=== PATIENT | female | born 1965 | race Caucasian/White ===

== ENCOUNTER 2018-01-15 12:34 | Outpatient (CLI) | payer BC | END 2018-01-15 12:35 | disposition home or self-care (01) | LOC: BICMAMMO 12:34 | PROVIDERS: ATTEND Family Medicine | DX: Z12.31 Encounter for screening mammogram for malignant neoplasm of breast (principal); R92.1 Mammographic calcification found on diagnostic imaging of breast | CPT/HCPCS: 77063; 77067 ==

== ENCOUNTER 2019-03-03 10:20 | Outpatient (CLI) | payer BC ==
--- NOTE | 2019-03-03 12:01 | RAD ---
PA AND LATERAL VIEWS OF THE CHEST: HISTORY: Asthma. Chest congestion. FINDINGS: The heart size is normal. The lungs are expanded without focal areas of consolidation, pneumothorace s, or pleural effusions. There are mild degenerative changes in the spine. There are postop changes of right rotator cuff repair. IMPRESSION: No radiographic evidence of acute cardiopulmonary process. POS: [facility]
== END 2019-03-03 10:21 | disposition home or self-care (01) ==
LOC: BICRAD 10:20
PROVIDERS: ATTEND Obstetrics & Gynecology
DX: J45.909 Unspecified asthma, uncomplicated (principal)
CPT/HCPCS: 71046

== ENCOUNTER 2020-06-11 16:21 | Emergency (ER) | payer BC | END 2020-06-11 17:30 | disposition home or self-care (01) | LOC: ERS 16:21 | DX: U07.1 COVID-19 (principal); J45.909 Unspecified asthma, uncomplicated; F90.9 Attention-deficit hyperactivity disorder, unspecified type; Z79.899 Other long term (current) drug therapy; Z79.51 Long term (current) use of inhaled steroids | CPT/HCPCS: 71045; 71275; 80053; 83605; 83880; 84484; 85025; 93005; 99283; Q9967 ==

== ENCOUNTER 2020-07-02 11:24 | Outpatient (CLI) | payer BC ==
--- NOTE | 2020-07-02 11:40 | RAD ---
XR Chest Pa Lat STANDARD History: Pneumonia. Asthma Comparison: Radiograph June 11, 2020 Findings: Improved left lung aeration. No confluent airspace consolidation, pneumothorax or effusion. No acute osseous abnormality. Impression: Improved lung aeration. No evidence for residual pneumonia.
== END 2020-07-02 11:25 | disposition home or self-care (01) ==
LOC: BICRAD 11:24
DX: U07.1 COVID-19 (principal); J18.8 Other pneumonia, unspecified organism; J45.909 Unspecified asthma, uncomplicated; J98.4 Other disorders of lung
CPT/HCPCS: 36415; 71046; 80053; 85025

== ENCOUNTER 2020-09-02 04:06 | Observation (INO) | payer BC ==
[2020-09-02] MEDS ORDERED: Ondansetron PF 4 MG/2 ML Vial ONE ×2 (04:22→13:33)
[2020-09-02] MEDS ORDERED: Morphine 4 MG/ML VIAL ONE (04:22)
[2020-09-02] MEDS ORDERED: Morphine 4 MG/ML VIAL SLOW IVP PRN ×2 (05:36→12:38)
[2020-09-02 05:41] VITALS: BMI 23.1
[2020-09-02] MEDS ORDERED: Ondansetron PF 4 MG/2 ML Vial IVP PRN ×2 (05:45→12:38)
[2020-09-02] MEDS ORDERED: Acetaminophen 325 MG TAB PO PRN (05:45)
[2020-09-02] MEDS ORDERED: Sodium Chloride 0.9% 1,000 ML IV SCH ×2 (05:45→12:38)
[2020-09-02] MEDS ORDERED: Ondansetron ODT 4 MG TAB SL PRN (05:45)
--- NOTE | 2020-09-02 09:10 | PDOC.BPN ---
- Brief Progress Note Encounter Date: 09/02/20 Encounter Time: 08:55 Ms. Maza is a 54 yo female with a PMH of recurrent colitis and proctitis followed with GI who is currently in room 3329 pre appendectomy for appendicitis. She states that on Sunday morning, she felt pain in the RLQ which had gradually gotten worse. The pain is dull and achy in nature and localized in the RLQ. Movement worsens the pain, while rest and pain meds alleviates it. Pt endorses nausea, but denies fever, chills, and chest pain, changes in urination or defecation. Pt is currently feeling ok, with minimal pain. Past surgical hx: cholecystectomy, left shoulder rotator cuff repair, Right knee surgery Physical Exam: Selected Entries 09/02/20 07:48 Temperature 98.2 F Pulse Rate 63 Blood Pressure 93/58 L [Semi-Fowlers] Respiratory 16 Rate O2 Sat by Pulse 96 Oximetry Oxygen Delivery Room Air Method General: In no acute distress Abdomen: soft, slight tenderness in RLQ abdomen upon palpation Heart: S1 S2 heard, normal Lungs: Bilateral breath sounds heard upon auscultation CT scan demonstrated acute uncomplicated appendicitis Plan: Appendectomy scheduled.
[2020-09-02] MEDS ORDERED: Fentanyl 100 MCG/2 ML VIAL ONE (09:14)
[2020-09-02] MEDS ORDERED: cefOXitin Sodium/Dextrose 2 GM/50 ML BAG ONE (10:29)
[2020-09-02] MEDS ORDERED: EPINEPHrine 1 MG/ML AMP ONE (10:38)
[2020-09-02] MEDS ORDERED: Bupivacaine 0.25% HCL 30 ML VIAL ONE (10:38)
[2020-09-02] MEDS ORDERED: Ondansetron HCl/PF 4 MG/2 ML Vial IVP PRN (12:20)
[2020-09-02] MEDS ORDERED: Promethazine HCl 25 MG/ML VIAL IM PRN ×2 (12:20→12:38)
[2020-09-02] MEDS ORDERED: Promethazine HCl 25 MG/ML VIAL SLOW IVP PRN (12:20)
[2020-09-02] MEDS ORDERED: PACU-Morphine 4MG/ML VIAL SLOW IVP PRN (12:20)
--- NOTE | 2020-09-02 12:25 | OP ---
DATE OF PROCEDURE: 09/02/2020 PREOPERATIVE DIAGNOSIS: Acute appendicitis. POSTOPERATIVE DIAGNOSIS: Acute appendicitis. PROCEDURE PERFORMED: Laparoscopic appendectomy. ANESTHESIA: General. ESTIMATED BLOOD LOSS: Minimal. COMPLICATIONS: None. SPECIMEN: Appendix. FINDINGS: Appendicitis. DESCRIPTION OF PROCEDURE: The patient was taken to the operating room and laid supine on the operating table. After general anesthetic was obtained, a Coker catheter was placed. The abdomen was prepped and draped in a sterile fashion. A curved incision was made below the umbilicus. Cautery was used to dissect down to and incise the intra-abdominal fascia. The abdominal cavity was entered bluntly using a Rosa clamp. A holding stitch of Vicryl was placed on each side of the fascia. A Parvez trocar was placed. High-flow peritoneum was obtained. A suprapubic 5-mm port and a left lower quadrant 5-mm port were placed under direct camera visualization. The cecum was rolled over to reveal acute appendicitis. A small window was made at the base of the appendix at the mesoappendix. A laparoscopic stapler was fired across the base of the appendix. A reload was fired across the mesoappendix. There was no bleeding on the staple lines. The appendix was placed in the EndoCatch bag and brought out through the Parvez. The right lower quadrant and pelvis were irrigated using sterile solution. There was no evidence of perforation, no pus. All port sites were infiltrated using local anesthesia. All ports were removed under camera visualization. Pneumoperitoneum was let down. Vicryl suture was used to close the fascial defect below the umbilicus; #4-0 Monocryl and Dermabond were used to close the skin incision. The patient was en route to recovery in stable condition. All instrument counts, needle counts, and lap counts were correct. Job ID: [id number]
[2020-09-02] MEDS ORDERED: Dextrose 5% in Water 1,000 ML IV PRN (12:38)
[2020-09-02] MEDS ORDERED: HYDROcodone/Acetaminophen 7.5/325 mg Tablet PO PRN ×2 (12:38)
[2020-09-02] MEDS ORDERED: Morphine 2 MG/ML VIAL SLOW IVP PRN (12:38)
[2020-09-02] MEDS ORDERED: hydrALAZINE 20 MG/ML VIAL SLOW IVP PRN (12:38)
[2020-09-02] MEDS ORDERED: Dextrose 50% Abboject 50 ML SYRINGE SLOW IVP PRN (12:38)
--- NOTE | 2020-09-02 12:48 | HP ---
CHIEF COMPLAINT: Abdominal pain. HISTORY OF PRESENT ILLNESS: This is a 54-year-old female who presents with pain in her lower abdomen, right worse than left. Described as crampy, sharp. She has never had this pain before. She has a history of left-sided abdominal pain for her chronic proctocolitis. She sees Dr. Nehal Zavaleta for that. This is associated with no fever or chills. It is associated with nausea and anorexia. No change in her normal stool pattern. No history of Crohn's disease. Seen at [facility] and found to have acute appendicitis. PAST MEDICAL HISTORY: Again includes proctocolitis. SURGICAL HISTORY: Laparoscopic cholecystectomy, multiple orthopedic surgeries. MEDICATIONS: Taken daily, see list. ALLERGIES: PENICILLIN, CAUSES A RASH. SOCIAL HISTORY: No smoking, alcohol, or other drugs. REVIEW OF SYSTEMS: Ten-system review of systems is otherwise negative unless described above. PHYSICAL EXAMINATION: HEENT: Sclerae anicteric. Oropharynx is clear. NECK: No lymphadenopathy. CHEST: Clear. HEART: Regular rate. ABDOMEN: Soft. Tender in right lower quadrant. Localized guarding. No rebound. No abdominal hernias. EXTREMITIES: No ischemia or edema to extremities. DIAGNOSTIC STUDIES: Labs reviewed from [facility]. CT scan reviewed showing acute appendicitis. ASSESSMENT: Acute appendicitis. PLAN: Laparoscopic appendectomy. Risks, benefits, and alternatives discussed. She gives consent. We will do this today. Job ID: [id number]
[2020-09-02 13:06] VITALS: TEMP 97.6
[2020-09-02] MEDS ORDERED: Ketorolac Tromethamine 30 MG/ML VIAL ONE (13:33)
[2020-09-02] MEDS ORDERED: ePHEDrine 50 MG/ML VIAL ONE (13:33)
[2020-09-02] MEDS ORDERED: Dexamethasone 20 MG/5 ML VIAL ONE (13:33)
[2020-09-02] MEDS ORDERED: Glycopyrrolate 0.2 MG/ML 5 ML SYRINGE ONE (13:33)
[2020-09-02] MEDS ORDERED: PROPOFOL 200 MG/20 ML VIAL ONE (13:33)
[2020-09-02] MEDS ORDERED: Succinylcholine 200 MG/10 ml SYRINGE FS ONE (13:33)
[2020-09-02] MEDS ORDERED: Rocuronium Bromide 10 MG/ML (10ML VIAL) ONE (13:33)
[2020-09-02] MEDS ORDERED: PHENYLEPHRINE-NS 100 MCG/ML 10 ML SYRINGE ONE (13:33)
[2020-09-02] MEDS ORDERED: Lidocaine 1% PF 5 ML VIAL ONE (13:33)
[2020-09-02 16:03] VITALS: BP 101/66
[2020-09-02] MEDS ORDERED: cefOXitin Sodium/Dextrose,Iso 2 GM in Premix Bag 1 BAG IVPB SCH (18:00)
[2020-09-02] MEDS ORDERED: Mometasone 200 MCG/Formoterol 5 MCG 120 PUFF INHALER INH SCH (18:30)
[2020-09-02] MEDS ORDERED: Famotidine 20 MG TAB PO SCH (21:00)
[2020-09-02] MEDS ORDERED: Famotidine/PF 20 mg/2ml Vial SLOW IVP SCH (21:00)
[2020-09-03] MEDS ORDERED: Montelukast Sodium 10 mg Tablet PO SCH (09:00)
[2020-09-03] MEDS ORDERED: Lisdexamfetamine Dimesylate [Vyvanse] 40 MG Capsule PO SCH (09:00)
== END 2020-09-02 16:22 | disposition home or self-care (01) ==
LOC: ERS 04:06 → SURG A 04:43 → INTOOBSV 04:43
PROVIDERS: ADMIT Surgery; ATTEND Surgery
PROC: 0DTJ4ZZ Resection of Appendix, Percutaneous Endoscopic Approach (ICD-10-PCS; principal; 2020-09-02)
DX: K35.80 Unspecified acute appendicitis (principal); K52.9 Noninfective gastroenteritis and colitis, unspecified; K62.89 Other specified diseases of anus and rectum; J45.909 Unspecified asthma, uncomplicated; F90.9 Attention-deficit hyperactivity disorder, unspecified type; Z79.899 Other long term (current) drug therapy; Z88.0 Allergy status to penicillin
CPT/HCPCS: 88304; 93005; 96374; 96375; J0171; J0694; J1100; J1885; J2270; J2405; J2704; J3010; J3490; S0020

== ENCOUNTER 2022-01-13 13:31 | Outpatient (CLI) | payer BC | END 2022-01-13 13:32 | disposition home or self-care (01) | LOC: ULT 13:31 | PROVIDERS: ATTEND Family Medicine | DX: R01.1 Cardiac murmur, unspecified (principal); I35.1 Nonrheumatic aortic (valve) insufficiency | CPT/HCPCS: 93306 ==

== ENCOUNTER 2022-03-06 07:33 | Outpatient (CLI) | payer BC ==
[2022-03-06] MEDS ORDERED: Iopamidol-370 76% 500 ML 1 ML ONE (15:36)
== END 2022-03-06 07:34 | disposition home or self-care (01) ==
LOC: BICCT 07:33
PROVIDERS: ATTEND Family Medicine
DX: R16.1 Splenomegaly, not elsewhere classified (principal)
CPT/HCPCS: 74170; Q9967

== ENCOUNTER 2023-03-15 08:17 | Outpatient (CLI) | payer BC | END 2023-03-15 08:18 | disposition home or self-care (01) | LOC: BICMAMMO 08:17 | PROVIDERS: ATTEND Student in an Organized Health Care Education/Training Program | DX: Z13.820 Encounter for screening for osteoporosis (principal); M85.89 Other specified disorders of bone density and structure, multiple sites | CPT/HCPCS: 77080 ==